=== PATIENT | female | born 1980 | race African-American/Black ===

== ENCOUNTER 2016-04-05 18:50 | Emergency (ER) ==
[2016-04-05] MEDS ORDERED: XYLOCAINE 1% INJ ONE (19:24)
[2016-04-05] MEDS ORDERED: ZOFRAN ODT PO ONE (19:24)
[2016-04-05] MEDS ORDERED: NORCO-10 PO ONE (19:24)
--- NOTE | 2016-04-05 20:14 | PROVIDER DOCUMENTATION ---
HPI-Rash/Wound/ReCheck - General Chief Complaint: Abscess Stated Complaint: ABSCESS Time Seen by Provider: 04/05/16 19:13 Source: patient Allergies/Adverse Reactions: Allergies Allergy/AdvReac Type Severity Reaction Status Date / Time Penicillins Allergy Severe ANAPHYLAXIS Verified 04/05/16 19:47 morphine Allergy ITCHING Verified 12/08/15 13:14 - History of Present Illness-Dermatology Nature of Presenting Problem: This pt presents today c complaints of abscess to the L axillary region. She has had this problem for several years but has never followed up c a surgeon. She states that it is hurting worse than usual and wants to be lanced. No other issues or complaints. Quality: reports: painful Severity: reports: moderate Onset/Duration: reports: other (see hpi) Context/Associated Symptoms: reports: abscess Similar Symptoms Previously?: Yes Recently seen or treated by another doctor?: No Review of Systems - Adult - REVIEW OF SYSTEMS - ADULT Constitutional: reports: no symptoms reported. denies: chills, fever Eyes: reports: no symptoms reported. denies: discharge, dry eyes Ears, Nose, Mouth & Throat: reports: no symptoms reported. denies: ear discharge, ear pain Cardiovascular: reports: no symptoms reported. denies: chest pain, edema Respiratory: reports: no symptoms reported. denies: chronic cough, cough Gastrointestinal: reports: no symptoms reported. denies: abdominal pain, hematemesis Genitourinary: reports: no symptoms reported. denies: dysuria, discharge Musculoskeletal: reports: no symptoms reported. denies: bone pain, back pain Integumentary: reports: see HPI. denies: hives, hair loss Neurological: reports: no symptoms reported. denies: ataxia, dizziness/vertigo Psychiatric: reports: no symptoms reported. denies: anxiety, anti-depressant use Endocrine: reports: no symptoms reported Hematologic/Lymphatic: reports: no symptoms reported Allergic/Immunologic: reports: no symptoms reported All Other Systems: Reviewed and Negative Past History - Adult - PAST MEDICAL HISTORY-ADULT Review of Records: reports: Old Records Reviewed, Nursing Assessment Review, Medications Reviewed, Social history reviewed & non-contributory. Major Childhood Illnesses: reports: denies history Cardiovascular: reports: HTN Respiratory: reports: asthma Gastrointestinal: reports: denies history Obstetrical/Gynecological: reports: denies history Genitourinary: reports: denies history Musculoskeletal: reports: denies history Neurological: reports: denies history Endocrine/Immune: reports: other (exczema) Other Conditions: reports: eczema - PRIOR SURGERIES/PROCEDURES Surgical/Procedure History: reports: BTL, other (myringotomy) - PRIOR HOSPITALIZATIONS Prior Hospitalizations: reports: none - IMMUNIZATION STATUS Childhood Immunizations: See Nurse Assessment Flu Vaccine: See Nurse Assessment - FAMILY HISTORY Family History: reviewed, not pertinent Physical Exam-General - PHYSICAL EXAM-ADULT Initial Vital Signs Reviewed: Yes - CONSTITUTIONAL General Appearance: appears well, alert, no apparent distress - EYES Eyes: PERRL/EOMI, pink conjunctivae - HEAD, EARS, NOSE, MOUTH & THROAT HENMT: normocephalic/atraumatic, moist mucous membranes, normal ENT inspection - NECK Neck: non-tender, full range of motion, normal inspection - RESPIRATORY Respiratory: chest non-tender, lungs clear, normal breath sounds - CARDIOVASCULAR Cardiovascular: normal peripheral pulses, regular rate, rhythm, no edema - GASTROINTESTINAL (ABDOMEN) Abdominal Exam: normal bowel sounds, non tender, soft - LYMPHATIC Lymphatic: no adenopathy - MUSCULOSKELETAL Back Exam: normal inspection, no CVA tenderness, no vertebral tenderness Extremity: normal range of motion, non-tender, normal gait - SKIN Integumentary: normal color, normal turgor, warm/dry, other (hidranitis suppuritiva) - NEUROLOGIC Neurologic: grossly normal, no motor/sensory deficits - PSYCHIATRIC Psych/Mental Status: normal mood/affect, normal thought content, normal thought process, oriented x 3 Progress - PLAN OF CARE/RESULTS Progress/Plan/Lab Results: Orders Category Date Time Status I and D Set up DIRECTED Care 04/05/16 19:24 Active Hydrocodone/APAP 10 mg/325 mg [[place]-10] Med 04/05/16 19:24 Discontinued 1 each PO NOW ONE Lidocaine 1% [Xylocaine 1%] Med 04/05/16 19:24 Discontinued 20 ml INJ NOW ONE Ondansetron Odt [Zofran Odt] Med 04/05/16 19:24 Discontinued 4 mg PO NOW ONE Vital Signs Temp Pulse Resp BP Pulse Ox 04/05/16 18:51 98.2 F 87 20 186/107 98 Penicillins Allergy (Severe, Verified 04/05/16 19:47) ANAPHYLAXIS morphine Allergy (Verified 12/08/15 13:14) ITCHING No Home Medications 04/05/16 Procedures - INCISION & DRAINAGE Abscess Type: Hidradenitis suppurativa Prepped with: Kit Utilized, Hibiclens, Sterile Drapes Applied Anesthetic: 1%, Lidocaine/Xylocaine Volume of Anesthetic (ml's): 10 Blade Size: 11 Packing placed?: No Sterile Dressing Applied?: Yes Drainage: Small Amount Procedure Comment: no complications Departure - Departure Time of Disposition Order: 20:13 DIAGNOSIS: Axillary hidradenitis suppurativa Disposition: HOME 01 Certified Medical Emergency: Urgent Condition: Good Additional Instructions: Take medication as prescribed. Keep area clean and dry. Follow up with a surgeon. ED Follow Up Instructions: You have been treated by a care provider in the Emergency Department. These instructions are being provided to you so you can have an understanding of how to care for yourself upon discharge. Upon discharge from the Emergency Department, you are responsible for making arrangements for follow-up care by a physician of your choice. Take all prescribed medications as directed. Return to the Emergency Department immediately for any new or worsening symptoms. You may call the Physician Referral phone number at [phone] to obtain a list of Physicians who are taking new patients. Prescriptions: Sulfamethoxazole/Trimethoprim [Bactrim Ds Tablet] 1 each PO BID #10 tablet Ibuprofen [Motrin] 800 mg PO Q8H PRN PRN #20 tablet PRN Reason: inflammation Referrals: Antoni Alberto MD [Primary Care Provider] - Arya Childs MD [STAFF PHYSICIAN] - Attestation - Physician/ Mid-level Attestation Patient care was provided by Mid-level provider (EVENT PLANNING MANAGER/PA):: Yes Mid-level provider:: Elder Lind Mid-level documentation review:: The Mid-level provider documentation, treatment plan and medical decision making was reviewed by the physician who agrees with all treatment and medical decision making by the P.
[2016-04-05 20:47] VITALS: BP 183/106
== END 2016-04-05 21:00 | disposition home or self-care (01) ==
LOC: ED 18:50
DX: L73.2 Hidradenitis suppurativa (principal); M79.622 Pain in left upper arm; I10 Essential (primary) hypertension

== ENCOUNTER 2016-08-04 14:34 | Observation (INO) ==
[2016-08-04 15:29] LABS: MANUAL DIFF NEEDED? NO
[2016-08-04 15:47] LABS: BASO% 0.5 % (0.0-0.8); EOS# 0.34 X1000 (0.0-0.7); EOS% 4.1 % (0.0-10.0); HEMATOCRIT 34.2 % (37.0-47.0); HEMOGLOBIN 11.2 g/dL (12.0-16.0); IMM GRAN# 0.02 X1000 (0.0-0.04); IMM GRAN% 0.2 % (0.0-0.5); INR 0.96; LYMPH# 3.25 X1000 (1.2-3.4); LYMPH% 39.2 % (20.5-51.1); MCH 30.3 PG (27-31); MCHC 32.7 g/dL (33-37); MCV 92.4 FL (81-99); MONO# 0.54 X1000 (0.11-0.59); MONO% 6.5 % (1.7-9.3); MPV 8.8 FL (7.4-10.4); NEUT% 49.5 % (42.2-75.2); PLT 387 X1000 (130-400); PROTIME 10.1 Seconds (9.2-11.7); PTT 25.2 Seconds (22.0-36.0)
[2016-08-04 16:00] LABS: AGAP 12; ALBUMIN 3.7 g/dL (3.5-5.0); ALKALINE PHOSPHATASE 73 U/L (32-104); BUN 12 mg/dL (8-22); CALCIUM 9.2 mg/dL (8.8-10.2); CHLORIDE 103 mmol/L (98-107); COSMO 275; GOT 12 U/L (10-30); GPT 8 U/L (10-36); POTASSIUM 3.2 mmol/L (3.5-5.1); SODIUM 138 mmol/L (136-145); TCO2 23 mmol/L (25-35); TOTAL BILIRUBIN 0.33 mg/dL (0.20-1.00); TOTAL PROTEIN 7.2 g/dL (6.3-8.3)
--- NOTE | 2016-08-04 16:00 | EKG Report ---
Test Performed on : 08/04/2016 3:35:41 PM Test Reason : Stroke like symptoms Blood Pressure : / mmHG Vent. Rate : 069 BPM Atrial Rate : 069 BPM P-R Int : 154 ms QRS Dur : 082 ms QT Int : 422 ms P-R-T Axes : 011 030 042 degrees QTc Int : 452 ms Normal sinus rhythm. Nonspecific T wave abnormality Abnormal ECG When compared with ECG of 23-FEB-2015 21:43, No significant change was found Unconfirmed Result
[2016-08-04 16:31] LABS: URINE CULTURE NEEDED? NO; URINE MICRO REVIEW NEEDED? NO; URINE SOURCE CLEAN CATCH
--- NOTE | 2016-08-04 16:32 | PROVIDER DOCUMENTATION ---
This chart was entered by Roxi Saucedo Scribe, acting as scribe for Meliton Norton MD. HPI-General Adult - General Chief Complaint: Numbness Stated Complaint: numbness on RT side Time Seen by Provider: 08/04/16 15:24 Source: patient Allergies/Adverse Reactions: Patient Allergies Allergy/AdvReac Type Severity Reaction Status Date / Time Penicillins Allergy Severe ANAPHYLAXIS Verified 08/04/16 14:47 morphine Allergy ITCHING Verified 08/04/16 14:47 Home Medications: Home Medication List Medication Instructions Recorded Confirmed Last Taken Type Amlodipine Besylate [Norvasc] 10 mg PO DAILY #30 tablet 08/04/16 Unknown Rx Clonidine HCl 0.1 mg PO TID PRN #30 tablet 08/04/16 Unknown Rx Lisinopril/Hydrochlorothiazide 1 each PO DAILY #30 tablet 08/04/16 Unknown Rx [Lisinopril-Hctz 20-25 mg Tab] - History of Present Illness -Gen Adult Nature of Presenting Problems: pt is a 35 yof who came to the ed with a cc of right sided numbness. Pt reports she woke this morning and fell down, when she tried to get up her right leg was numb. Then the pt reports she noticed her entire right side from her face down was numb. Pt reports that she has stopped taking her BP medicine several years ago Location of Pain/Injury: reports: face (right side of the face numb), upper extremity (right numbness), lower extremity (right) Quality of Pain: reports: other (numbness) Severity: reports: mild Onset/Duration: reports: just prior to arrival Timing: reports: still present Associated Symptoms: reports: weakness, trouble walking Similar Symptoms Previously?: No Recently seen or treated by another doctor?: No Review of Systems - Adult - REVIEW OF SYSTEMS - ADULT Constitutional: denies: chills, fever Eyes: denies: decreased vision, double vision Ears, Nose, Mouth & Throat: reports: no symptoms reported Cardiovascular: reports: no symptoms reported Respiratory: reports: no symptoms reported Gastrointestinal: reports: no symptoms reported Genitourinary: reports: no symptoms reported Musculoskeletal: reports: muscle weakness. denies: frequent leg cramps, joint swelling, neck pain Integumentary: reports: no symptoms reported Neurological: reports: numbness. denies: seizure, syncope Psychiatric: reports: no symptoms reported Endocrine: reports: no symptoms reported Hematologic/Lymphatic: reports: no symptoms reported Allergic/Immunologic: reports: no symptoms reported All Other Systems: Reviewed and Negative Past History - Adult - PAST MEDICAL HISTORY-ADULT Review of Records: reports: Nursing Assessment Review Major Childhood Illnesses: reports: denies history Cardiovascular: reports: HTN Respiratory: reports: asthma Gastrointestinal: reports: denies history Obstetrical/Gynecological: reports: denies history Genitourinary: reports: denies history Musculoskeletal: reports: denies history Neurological: reports: denies history Endocrine/Immune: reports: other (exczema) Other Conditions: reports: eczema - PRIOR SURGERIES/PROCEDURES Surgical/Procedure History: reports: BTL, other (myringotomy) - PRIOR HOSPITALIZATIONS Prior Hospitalizations: reports: none - IMMUNIZATION STATUS Childhood Immunizations: See Nurse Assessment Flu Vaccine: See Nurse Assessment - FAMILY HISTORY Family History: reviewed, not pertinent Physical Exam-General - PHYSICAL EXAM-ADULT Initial Vital Signs Reviewed: Yes - CONSTITUTIONAL General Appearance: appears well, alert, no apparent distress - EYES Eyes: PERRL/EOMI, pink conjunctivae - HEAD, EARS, NOSE, MOUTH & THROAT HENMT: normocephalic/atraumatic, moist mucous membranes - NECK Neck: non-tender, full range of motion - RESPIRATORY Respiratory: chest non-tender, lungs clear. negative: plerual rub, decreased rate - CARDIOVASCULAR Cardiovascular: normal peripheral pulses, regular rate, rhythm - GASTROINTESTINAL (ABDOMEN) Abdominal Exam: normal bowel sounds, non tender, soft - MUSCULOSKELETAL Back Exam: normal inspection, no CVA tenderness Extremity: other (numbness of the right side of her body). negative: normal range of motion - SKIN Integumentary: normal color, normal turgor - NEUROLOGIC Neurologic: grossly normal - PSYCHIATRIC Psych/Mental Status: normal mood/affect, normal thought content, normal thought process, oriented x 3 Progress - PLAN OF CARE/RESULTS Progress/Plan/Lab Results: Vital Signs - 8 hr 08/04/16 14:41 Temperature 98.5 F Pulse Rate 74 Respiratory Rate 16 Blood Pressure 206/106 O2 Sat by Pulse Oximetry 96 Laboratory Results - last 24 hr 08/04/16 08/04/16 08/04/16 15:05 15:05 15:05 WBC 8.30 RBC 3.70 L Hgb 11.2 L Hct 34.2 L MCV 92.4 MCH 30.3 MCHC 32.7 L RDW Std Deviation 13.3 Plt Count 387 MPV 8.8 Immature Gran % (Auto) 0.2 Neut % (Auto) 49.5 Lymph % (Auto) 39.2 [place] % (Auto) 6.5 Eos % (Auto) 4.1 Baso % (Auto) 0.5 Immature Gran # (Auto) 0.02 Neut # (Auto) 4.11 Lymph # (Auto) 3.25 [place] # (Auto) 0.54 Eos # (Auto) 0.34 Baso # (Auto) 0.04 PT 10.1 INR 0.96 PTT (Actin FS) 25.2 Sodium 138 Potassium 3.2 L Chloride 103 Carbon Dioxide 23 L Anion Gap 12 BUN 12 Creatinine 0.8 Estimated GFR/1.73 m2 > 60 BUN/Creatinine Ratio 15 Glucose 94 Calculated Osmolality 275 Calcium 9.2 Total Bilirubin 0.33 AST 12 ALT 8 L Alkaline Phosphatase 73 Troponin T Total Protein 7.2 Albumin 3.7 Globulin 3.5 Albumin/Globulin Ratio 1.1 08/04/16 15:05 WBC RBC Hgb Hct MCV MCH MCHC RDW Std Deviation Plt Count MPV Immature Gran % (Auto) Neut % (Auto) Lymph % (Auto) [place] % (Auto) Eos % (Auto) Baso % (Auto) Immature Gran # (Auto) Neut # (Auto) Lymph # (Auto) [place] # (Auto) Eos # (Auto) Baso # (Auto) PT INR PTT (Actin FS) Sodium Potassium Chloride Carbon Dioxide Anion Gap BUN Creatinine Estimated GFR/1.73 m2 BUN/Creatinine Ratio Glucose Calculated Osmolality Calcium Total Bilirubin AST ALT Alkaline Phosphatase Troponin T < 0.010 Total Protein Albumin Globulin Albumin/Globulin Ratio Orders Category Date Time Status Cardiac Monitoring DIRECTED Care 08/04/16 15:22 Active Saline Loc NOW Care 08/04/16 15:22 Active CHEST-PORTABLE [RAD] Stat Exams 08/04/16 15:22 Ordered HEAD W/O CONTRAST [CT] Stat Exams 08/04/16 15:22 Ordered CBC WITH ELECTRONIC DIFF [HEME] Stat Lab 08/04/16 15:05 Completed COMPREHENSIVE METABOLIC PANEL [CHEM] Stat Lab 08/04/16 15:05 Completed PROTIME WITH INR [COAG] Stat Lab 08/04/16 15:05 Completed PTT [COAG] Stat Lab 08/04/16 15:05 Completed TROPONIN T Stat Lab 08/04/16 15:05 Completed URINALYSIS W/POSS RFLX CULT-1 [URINALYSIS] Stat Lab 08/04/16 15:22 Uncollected URINE DRUG SCREEN Stat Lab 08/04/16 15:22 Uncollected EKG [EKG] Stat Ther 08/04/16 15:22 Draft Result Diagrams: 08/04/16 15:05 08/04/16 15:05 - REASSESSMENT Reassessment #1 Status: unchanged (agrees to see Dr Coughlin and her doctor to get mri and evaluate parestesias further) - EKG 1 Time of EKG reading by physician:: 15:35 EKG Read and Signed by:: Meliton Norton EKG Interpretation (*Must complete 3 of following elements*): Abnormal Rate: 69 (nonspecific T wave abnormality) Rhythm: NSR Departure - Departure Time of Disposition Decision: 17:43 DIAGNOSIS: Paresthesias Hypertension Qualifiers: Hypertension type: essential hypertension Qualified Code(s): I10 - Essential ( primary) hypertension Disposition: HOME 01 Certified Medical Emergency: Emergent Condition: Stable Additional Freetext Instructions: Fu with Dr Rendon and if referred to Dr Coughlin for neurology ED Follow Up Instructions: You have been treated by a care provider in the Emergency Department. These instructions are being provided to you so you can have an understanding of how to care for yourself upon discharge. Upon discharge from the Emergency Department, you are responsible for making arrangements for follow-up care by a physician of your choice. Take all prescribed medications as directed. Return to the Emergency Department immediately for any new or worsening symptoms. You may call the Physician Referral phone number at [phone] to obtain a list of Physicians who are taking new patients. Prescriptions: Clonidine HCl 0.1 mg PO TID PRN #30 tablet PRN Reason: hypertension Lisinopril/Hydrochlorothiazide [Lisinopril-Hctz 20-25 mg Tab] 1 each PO DAILY # 30 tablet Amlodipine Besylate [Norvasc] 10 mg PO DAILY #30 tablet Referrals and Follow-Ups: Antoni Alberto MD [Primary Care Provider] - - Critical Care Note This patient required my direct & personal management of CC.: No This chart was documented by the indicated scribe, (Roxi Saucedo Scribe) and accurately reflects the services I performed and decisions made by me, Meliton Norton MD, as attested by the provider's signature.
[2016-08-04 16:58] LABS: BILIRUBIN URINE NEGATIVE (NEGATIVE); BLOOD URINE TRACE (NEGATIVE); COLOR YELLOW; GLUCOSE URINE NEGATIVE (NEGATIVE); NITRITE URINE NEGATIVE (NEGATIVE); PH URINE 6.5; PROTEIN URINE NEGATIVE (NEGATIVE); SP GRAVITY URINE 1.021; TURBIDITY URINE CLEAR (CLEAR); UROBILINOGEN URINE NORMAL (NORMAL)
[2016-08-04 17:02] LABS: UR AMPHETAMINES QUAL NONE DETECTED (NONE DETECT); UR BARBITUATES QUAL NONE DETECTED (NONE DETECT); UR BENZODIAZEPIN QUAL NONE DETECTED (NONE DETECT); UR CANNABINOIDS QUAL NONE DETECTED (NONE DETECT); UR COCAINE QUAL NONE DETECTED (NONE DETECT); UR METHADONE QUAL NONE DETECTED (NONE DETECT); UR OPIATES QUAL NONE DETECTED (NONE DETECT); UR OXYCODONE QUAL NONE DETECTED (NONE DETECT); UR PCP QUAL NONE DETECTED (NONE DETECT)
[2016-08-04 17:05] LABS: LEUKOCYTES URINE NEGATIVE (NEGATIVE); UR EPITHELIAL CELLS <10 /HPF (<10); URINE BACTERIA NEGATIVE /HPF; URINE RBC <10 /HPF (<10); URINE WBC <10 /HPF (<10)
--- NOTE | 2016-08-04 17:15 | Diag Imaging Result Document ---
PROCEDURE NAME: HEAD W/O CONTRAST - 08/04/2016 CT BRAIN WITHOUT: FINDINGS: No parenchymal hemorrhage. No epidural or subdural hematoma. No subarachnoid hemorrhage. No mass identified on this noncontrasted exam. No hydrocephalus. No sinus opacification. IMPRESSION: No hemorrhage. Negative brain CT without contrast. A preliminary report was given at 4:38 p.m.
--- NOTE | 2016-08-04 17:25 | Diag Imaging Result Document ---
PROCEDURE NAME: CHEST-PORTABLE - 08/04/2016 PORTABLE CHEST: COMPARISON: 02/19/2015. FINDINGS: The lungs are well expanded. There are no infiltrates. The heart is not enlarged. The vessels are not distended. No pleural effusions identified. IMPRESSION: Negative chest.
[2016-08-04] MEDS ORDERED: CATAPRES PO ONE (17:35)
[2016-08-04] MEDS ORDERED: NORVASC PO ONE (17:46)
[2016-08-04] MEDS ORDERED: APRESOLINE IV ONE (17:50)
[2016-08-04] MEDS ORDERED: CARDENE 20 MG/NS 20 MG/200 ML PIGGYBACK IV SCH (19:00)
--- NOTE | 2016-08-04 20:44 | HISTORY AND PHYSICAL ---
HISTORY OF PRESENT ILLNESS: Patient came to the emergency room because blood pressure was elevated, also concerned that her right hand actually did not have as good a feeling. She had good motion, good motor strength and some paresthesias in her right hand and her right arm. Her systolic blood pressures 205/128. Funduscopic exam was unremarkable. She had no sign of any true motor deficit, no other significant past medical history other than she has had eczema with some scarring, vitiligo and history of asthma. ALLERGIES: Penicillin and morphine. PAST MEDICAL HISTORY: History of hypertension, she has had bilateral tubal ligation and she had ear surgery. MEDICATIONS: She is just on albuterol and Pulmicort. SOCIAL HISTORY: Family was at bedside. She does not smoke. REVIEW OF SYSTEMS: General: No weight gain or loss. No fever, chills. HEENT: Unremarkable. Respiratory: No increased work of breathing or dyspnea. Cardiovascular: No chest pain or tachy palpitation. GI: Unremarkable. : Unremarkable. Musculoskeletal/Neurologic: No significant complaints. Endocrinologic/Hematologic: No significant history. History of asthma not had any trouble recently and she has had symmetrical eczema with vitiligo. PHYSICAL EXAMINATION: VITAL SIGNS: Temperature 98.5 degrees, pulse 66, respirations 25, blood pressure 205/128. EYES: Pupils equal, round. LUNGS: Clear in all lung vences. CARDIOVASCULAR: Regular rhythm, rate without murmur or S3. ABDOMEN: Soft. SKIN: Warm and dry. Weight 173 pounds. DATA: White blood cell count 8300, hematocrit 34, platelet count 387,000. Sodium 138, potassium 3.2, chloride 103, bicarb 23, BUN 12, creatinine 0.8. Pro time was 10.1, troponin less than 0.01. Urinalysis unremarkable. Chest x-ray negative chest, head CT no hemorrhage, negative brain CT without contrast. MEDICATIONS: At home she is on Norvasc 10 mg once a day, clonidine 0.1 mg t.i.d., lisinopril/hydrochlorothiazide 20/25 one daily. ASSESSMENT AND PLAN: Accelerated hypertension. I do not see this is any true hypertensive urgency. The paresthesias in her arm really neurologically everything tests fine and I think that may be also parasympathetic discharge from being anxious and nervous and she really would like to go home. I talked her into staying here and we will give her some p.r.n. blood pressure medicine, give her some Ativan for anxiety as well and see if we can get the blood pressure down go home in the morning. Funduscopic exam was unremarkable. Renal function looks good. Will supplement a little bit of potassium while she is here. cc: Pedro Pablo Morocho MD
[2016-08-04] MEDS ORDERED: ZOFRAN IV PRN (21:25)
[2016-08-04] MEDS ORDERED: PRINIVIL PO SCH (21:25)
[2016-08-04] MEDS ORDERED: CATAPRES PO PRN (21:25)
[2016-08-04] MEDS ORDERED: NS + KCL 40 MEQ 1,000 ML IV SCH (21:25)
[2016-08-04] MEDS ORDERED: ATIVAN PO PRN (21:25)
[2016-08-04] MEDS ORDERED: TYLENOL PO PRN (21:25)
[2016-08-04] MEDS: PRINIVIL PO SCH (22:43)
[2016-08-05] MEDS: PRINIVIL PO SCH (08:11)
[2016-08-05 08:37] VITALS: BP 113/91
--- NOTE | 2016-08-06 06:43 | DISCHARGE SUMMARY ---
ADMISSION DATE: 08/04/2016 DISCHARGE DATE: 08/05/2016 HISTORY AND HOSPITAL COURSE: Ms. Franco was admitted yesterday. She came in to the emergency room with blood pressure elevated. She complained of some tingling and some numbness in the right side of her face. The right arm and hand had good motor strength. She really wanted to go home. Blood pressures were around 200-210. Diastolic was in the 120s. Put her into observation, increased her Norvasc and her lisinopril. She feels a lot better. No chest pain. No nausea. No palpitations. I felt she could go home. She will follow up with Dr. Rendon, I believe. DISCHARGE MEDICATIONS: Norvasc 10 mg twice a day, and lisinopril, I believe is going to be 20 mg b.i.d. Blood pressures are down to 138-140 over 90, so we will discharge her home and have her take a baby aspirin. cc: Pedro Pablo Morocho MD
== END 2016-08-05 14:08 | disposition home or self-care (01) ==
LOC: ED 14:34 → 3N 14:34
PROVIDERS: ATTEND Emergency Medicine